=== PATIENT | female | born 1970 | race Caucasian/White ===

== ENCOUNTER 2017-04-30 08:40 | Emergency (ER) | payer MEDICARE, MEDICAID ==
[~2017-04-30] VITALS: Ht 160 cm; Wt 57.9 kg
[2017-04-30 11:15] VITALS: BP 110/60
== END 2017-04-30 11:17 | disposition home or self-care (01) ==
LOC: ER 09:08
DX: K62.3 Rectal prolapse (principal); F84.0 Autistic disorder
CPT/HCPCS: 99283

== ENCOUNTER 2017-05-05 09:08 | Emergency (ER) | payer MEDICARE, MEDICAID ==
[~2017-05-05] VITALS: Ht 167.6 cm; Wt 69.0 kg
[2017-05-05 09:09] VITALS: BP 114/71
== END 2017-05-05 10:44 | disposition home or self-care (01) ==
LOC: ER 09:08
DX: K62.3 Rectal prolapse (principal); F84.0 Autistic disorder
CPT/HCPCS: 99281